=== PATIENT | male | born 1965 | race Two or more races ===

== ENCOUNTER 2019-03-21 02:24 | Emergency (ER) | payer MEDICAID ==
[~2019-03-21] VITALS: Ht 165.1 cm; Wt 64.9 kg
--- NOTE | 2019-03-21 02:44 | NUR ---
Dr. Early at bedside for MSE.
[2019-03-21] MEDS ORDERED: IV NORMAL SALINE 1000 ML BAG IV ONE ×2 (03:00→03:45)
[2019-03-21 03:11] LABS: BASOPHILS % (AUTO) 0.1 % (0.0-2.0); EOSINOPHILS # (AUTO) 0.8 K/uL (0.0-0.7); EOSINOPHILS % (AUTO) 9.2 % (0.0-7.0); HEMOGLOBIN 18.2 g/dL (12.5-16.3); LYMPHOCYTES # (AUTO) 0.7 K/uL (20.0-40.0); LYMPHOCYTES % (AUTO) 7.6 % (20.5-51.5); MEAN CORPUSCULAR HEMOGLOBIN 31.9 uug (23.8-33.4); MEAN CORPUSCULAR HGB CONC 35 g/dL (32.5-36.3); MEAN CORPUSCULAR VOLUME 91.3 fL (73.0-96.2); MONOCYTES # (AUTO) 0.6 K/uL (2.0-10.0); MONOCYTES % (AUTO) 6.4 % (0.0-11.0); NEUTROPHILS # (AUTO) 6.9 K/uL (1.8-8.9); NEUTROPHILS % (AUTO) 76.7 % (38.5-71.5); PLATELET COUNT (AUTO) 224 K/uL (152-348); RED BLOOD CELL COUNT(AUTO) 5.69 MIL/uL (4.06-5.63)
[2019-03-21 03:17] LABS: CARBON DIOXIDE 27 mmol/L (21-32); CHLORIDE 99 mmol/L (98-107); CREATININE 1.2 mg/dL (0.6-1.3); GLUCOSE 155 mg/dL (74-106); POTASSIUM 4.2 mmol/L (3.5-5.1); UREA NITROGEN, BLOOD 16 mg/dL (7-18)
[2019-03-21 03:22] LABS: ALANINE AMINOTRANSFERASE 39 U/L (16-63); ALKALINE PHOSPHATASE 94 U/L (50-136); ASPARTATE AMINOTRANSFERASE 30 U/L (15-37); BILIRUBIN,DIRECT 0.2 mg/dL (0.0-0.2); BILIRUBIN,TOTAL 0.9 mg/dL (0.2-1.0); TOTAL PROTEIN, SERUM 9.2 g/dL (6.4-8.2)
--- NOTE | 2019-03-21 03:24 | NUR ---
Pt out of ER for CT.
[2019-03-21 03:26] LABS: ETHANOL < 3 MG/DL (0-0)
[2019-03-21 03:40] LABS: ACETAMINOPHEN < 2.0 ug/mL (10-30)
--- NOTE | 2019-03-21 03:40 | NUR ---
Pt back to ER from CT.
[2019-03-21 03:46] LABS: THYROID STIMULATING HORMONE 1.066 mIU/mL (0.358-3.740)
[2019-03-21] MEDS ORDERED: ACETAMINOPHEN 325 MG TABLET PO ONE (04:15)
[2019-03-21] MEDS ORDERED: ACETAMINOPHEN ES 500 MG TABLET ONE (04:40)
--- NOTE | 2019-03-21 05:10 | NUR ---
Pt provided urine sample, sent to lab.
--- NOTE | 2019-03-21 05:12 | NUR ---
Called [facility] for neurosurgery consult to page Dr. Fuentes
--- NOTE | 2019-03-21 05:13 | NUR ---
Dr. Early speaking with Dr. Skip Bundy.
[2019-03-21 05:24] LABS: *BILIRUBIN,URIN NEGATIVE (NEGATIVE); *CLARITY,URINE CLEAR (CLEAR); *COLOR,URINE YELLOW (YELLOW); *KETONES,URINE NEGATIVE (NEGATIVE); *UROBILINOGEN,URINE 0.2 E.U./dl (NORMAL); LEUKOCYTE ESTERASE ,URINE NEGATIVE (NEGATIVE); NITRITE, URINE NEGATIVE (NEGATIVE); PH,URINE 5.5 (5.0-8.0); UGLUCOSE NEGATIVE (NEGATIVE)
[2019-03-21 05:26] LABS: *BLOOD, URINE TRACE (NEGATIVE)
[2019-03-21 05:29] LABS: BACTERIA,URINE FEW /HPF (NONE SEEN); RBC,URINE 0-3 /HPF (0-3); SQUAMOUS EPITHELIAL CELL,UR FEW /HPF (NONE SEEN); WBC,URINE NONE SEEN /HPF (0-3)
[2019-03-21 05:33] LABS: *AMPHETAMINE, URINE NEGATIVE (NEGATIVE); *BARBITURATE, URINE NEGATIVE (NEGATIVE); *CANNABINOID, URINE NEGATIVE (NEGATIVE); *COCCAINE, URINE NEGATIVE (NEGATIVE); *OPIATE, URINE NEGATIVE (NEGATIVE); *PHENCYCLIDINE SCREEN,URINE NEGATIVE (NEGATIVE)
--- NOTE | 2019-03-21 06:00 | NUR ---
Received call back from [facility], faxed pt clinicals to . Spoke with Kiley.
--- NOTE | 2019-03-21 06:56 | NUR ---
Report given to Wyatt Gates.
--- NOTE | 2019-03-21 07:21 | NUR ---
PT IS IN BED #2A. PT IS SLEEPING AT THIS TIME. NO S/S OF ACUTE DISTRESS. CONTINUE TO MONITOR THE PT.
--- NOTE | 2019-03-21 07:28 | NUR ---
SPOKE TO GAURAV FROM TRANSFER CENTER. PT IS GOING TO GO TO [facility], NEURO/TELEMETRY FLOOR, ROOM #4414-2, BY [facility]. TELEPHONE NUMBER FOR REPORT IS : [phone].
--- NOTE | 2019-03-21 08:27 | NUR ---
REPORT WAS GIVEN TO [facility] NEURO/[facility] MYRA.
--- NOTE | 2019-03-21 09:41 | NUR ---
[facility] WAS CALLED ([phone]). DIOGENES TIME WAS CHANGED TO 1030.
--- NOTE | 2019-03-21 11:13 | NUR ---
[facility] WAS CALLED AGAIN, DIOGENES TIME WAS CHANGED BY AMBULANCE TO 1315.
--- NOTE | 2019-03-21 12:46 | NUR ---
PT REFUSED TRANSFER TO [facility]. DR FRENCH TALKED TO THE PT.
--- NOTE | 2019-03-21 13:00 | NUR ---
PT RESTING IN BED COMFORTABLY. NO S/S OF ACUTE DISTRESS AT THIS TIME.
--- NOTE | 2019-03-21 13:02 | NUR ---
PT DECIDED TO LEAVE HOSPITAL AMA. DR FRENCH RE-EVALUATED THE PT. DR FRENCH EXPLAINED ALL RISKS OF LEAVING HOSPITAL AMA TO THE PT. PT VERBALIZED FULL UNDERSTANDING OF DR FRENCH EXPLANATIONS. PT SIGNED AMA FORM AND LEFT HOSPITAL. GAIT WAS STABLE. PT WAS ABLE TO SPEAK IN FULL SENTENCES AND MOVE ALL FOUR EXTREMITIES WITHOUT LIMITATION. PT DENIED PAIN, DENIED DIZZINESS, NO NAUSEA / VOMITING.
[2019-03-21 13:09] VITALS: BP 118/66
== END 2019-03-21 13:11 | disposition left against medical advice (07) ==
LOC: ER 02:28
DX: I60.9 Nontraumatic subarachnoid hemorrhage, unspecified (principal); R55 Syncope and collapse; R19.7 Diarrhea, unspecified; Z88.0 Allergy status to penicillin
CPT/HCPCS: 36415; 70450; 71045; 80048; 80076; 80307; 81000; 81001; 82140; 83605; 84443; 84484; 85025; 85730; 87040 ×2; 87086; 93005; 96360; 96361; 99285; G0480 ×2; G0481; 70030-TC; A4663; A9150; J7030